=== PATIENT | male | born 1995 | race Two or more races ===

== ENCOUNTER 2023-03-15 18:28 | Emergency (ER) | payer OTHER ==
[~2023-03-15] VITALS: Ht 177.8 cm; Wt 81.6 kg
[2023-03-16 01:43] LABS: ERYTHROCYTE SEDIMENTATION RATE 0 mm/hr; HEMATOCRIT 48.8 % (39.0-48.0); MEAN CELL VOLUME 90.3 fL (80.0-100.00); MEAN CORPUSCULAR HGB CONC 34.9 g/dl (32.0-36.0); PLATELET COUNT 192 K/uL (150-450); RED CELL DISTRIBUTION WIDTH 12.4 % (11.5-14.5)
[2023-03-16 01:49] LABS: MEAN CORPUSCULAR HEMOGLOBIN 31.4 pg (27.00-32.0)
[2023-03-16] MEDS ORDERED: CEPHALEXIN500 MG PO (02:31)
[2023-03-16] MEDS ORDERED: KETO10TA2 PO (02:31)
[2023-03-16] MEDS ORDERED: CENTANY30 GM SUBCUTANEO (02:31)
== END 2023-03-16 02:41 | disposition home or self-care (01) ==
LOC: ER 18:28
PROVIDERS: General Practice
DX: L03.115 Cellulitis of right lower limb (principal); Z91.013 Allergy to seafood; Z91.018 Allergy to other foods